=== PATIENT | female | born 1975 | race Caucasian/White ===

== ENCOUNTER → 2018-03-18 | Outpatient (CLI) | payer BC, OTHER ==
[~2018-03-18] MED LIST: CITA10TA8 PO; TAPE75TA3 PO
--- NOTE | 2018-03-18 10:47 | KCIC ---
MRI Lumbar Spine without contrast History: Low back pain, right lower extremity pain and numbness, previous surgeries, lumbar radiculopathy Technique: Multiplanar, multi sequential noncontrast MR imaging was performed of the lumbar spine. Contrast: None Comparison: December 10, 2015 Findings: Lumbar vertebral body stature is preserved. There is again minimal posterior subluxation L3 relative to L4. There is again posterolateral fusion hardware L4-5 with bilateral pedicle screws. Exam does not fully evaluate integrity of hardware. There is again small hemangioma of L1. There is again interbody graft L4-5. There is again advanced degenerative disc disease L3-4. There has been progression of fairly advanced degenerative disc disease at L2-3, new minimal endplate edema. There is also L3-4 endplate edema greater than previously. There is mild reversal of the lordotic curvature. Conus terminates at L1-L2. There is again mild disc desiccation L5-S1. L2-L3: There is minimal disc osteophyte complex, new bulge/broad protrusion more eccentric to the left lateral recess with associated annular tear. There is mild buckling of the ligamentum flavum and facet hypertrophic change. There is increased moderate to severe narrowing of the far left lateral recess with contact of the descending left L3 nerve root. Neural foramina are overall adequate. L3-L4: There is again disc osteophyte complex superimposed on the posteriorly subluxed L3 vertebral body margin. There is facet degenerative change. There is again left laminectomy defect. There is very mild narrowing of the far left lateral recess although less prominent than previously as previously seen small extrusion in the left lateral recess no longer visualized. Neural foramina are overall adequate. L4-L5: There again has been left laminectomy. Spinal canal is adequate. Neural foramina are somewhat poorly evaluated due to artifact from hardware, not significantly narrowed. L5-S1: There is again severe right facet hypertrophic change, minimally on the left. There is again shallow broad posterior protrusion. There is moderate to severe right lateral recess stenosis with contact of the descending right S1 nerve root probably slightly greater. There is moderate narrowing of the far left lateral recess at location descending left S1 nerve root. There is mild left and probable [id number] right neural foramina compromise, somewhat poorly evaluated due to artifact from hardware. Impression: 1. Comparing with the 2016 exam, there has been progression of degenerative disc disease at L2-3, increased left lateral recess stenosis at this level by broad protrusion with contact of the descending left L3 nerve root. There is a somewhat greater degree of narrowing of the right lateral recess at L5-S1 at which there is broad protrusion with contact of the descending right S1 nerve root. There is also left lateral recess stenosis at L5-S1. There again has been posterolateral fusion L4-5, left laminectomies L3-4 and L4-5. There is probable [id number] narrowing the right L5-S1 neural foramen, somewhat limited evaluation of the neural foramina at L5-S1 and L4-5 due to artifact created by hardware. There is multilevel lumbar facet degenerative change, similar minimal posterior subluxation L3 relative L4. There is again fairly advanced degenerative disc disease L3-4. Electronically signed by: Dagoberto Young MD (03/18/2018 10:43 AM) [email or web address]
== END | disposition home or self-care (01) ==
LOC: KCIC MRI 09:07
DX: S33.130A Subluxation of L3/L4 lumbar vertebra, initial encounter (principal); M48.061 Spinal stenosis, lumbar region without neurogenic claudication; M47.896 Other spondylosis, lumbar region; X58.XXXA Exposure to other specified factors, initial encounter; Y93.89 Activity, other specified; Y92.89 Other specified places as the place of occurrence of the external cause; Y99.8 Other external cause status
CPT/HCPCS: 72148